=== PATIENT | male | born 1960 | race Caucasian/White ===

== ENCOUNTER 2020-05-10 21:54 | Inpatient (IN) | payer OTHER, SELFPAY ==
--- NOTE | 2020-05-10 22:10 | PC.NURSE ---
Went to [facility] pt for triage, admitting stated that he went to the bathroom.
--- NOTE | 2020-05-10 22:41 | ED.GIBLEED ---
HPI - GI Bleed General Stated complaint: blood in stool Time Seen by Provider: 05/10/20 21:59 Source: patient Mode of arrival: Ambulatory Limitations: no limitations History of Present Illness HPI Narrative: 59M non smoker with HTN, hyperlipidemia and history of a bowel resection presents with a chief complaint of multiple large bloody stools over the course of the day. He has become dizzy, weak, lightheaded and sweaty and had 4 of these bowel movements in the last hour. He does not take any blood thinners. He has some crampy lower abdominal pain that is worse with motion and improves with rest. He denies fever or chills. He has had no runny nose, sore throat or cough. In 2006 the patient had significant abdominal pain and during the evaluation they found he had a perforated diverticulum required bowel resection with primary anastomosis. Patient takes no blood thinners. He denies history of ulcers, alcohol use, or liver disease. He denies any vomiting. MD complaint: blood streaked stool and gross hematochezia Onset (ago): hour(s) Pain Consistency: constant Severity: moderate Relieving factors: rest Exacerbating factors: movement Related Data Home Medications Medication Instructions Recorded Confirmed aspirin 81 mg PO QDAY #0 11/26/16 05/11/20 cholecalciferol (vitamin D3) 2,000 iu PO QDAY #0 11/26/16 05/11/20 [Vitamin D3] hydrochlorothiazide 25 mg PO QDAY #0 11/26/16 05/11/20 lisinopril 20 mg PO QDAY #0 11/26/16 05/11/20 metformin [Glucophage] 500 mg PO BIDCC #0 11/26/16 05/11/20 omega 2-hwh-weo-fish oil [Fish Oil] 3,000 mg PO Q DAY #0 11/26/16 05/11/20 simvastatin 20 mg PO BEDTIME #0 11/26/16 05/11/20 potassium citrate PO BID 05/11/20 Allergies Allergy/AdvReac Type Severity Reaction Status Date / Time No Known Allergies Allergy Uncoded 01/04/18 12:42 Review of Systems Constitutional Constitutional: Denies chills, Reports fatigue, Denies fever(s), Denies frequent falls, Denies lethargy and Reports weakness Eyes Eyes: Denies change in vision, Denies eye discharge, Denies irritation and Denies loss of vision ENT Ears, Nose, Mouth, and Throat: Denies change in voice, Denies dizziness, Denies neck pain, Denies sore throat and Denies throat swelling Cardiovascular Cardiovascular: Denies chest pain, Denies irregular heart rhythm, Denies lightheadedness, Denies palpitations, Denies dyspnea, Denies dyspnea on exertion and Denies orthopnea Respiratory Respiratory: Denies cough, Denies dyspnea, Denies dyspnea on exertion and Denies wheezing Gastrointestinal Gastrointestinal: Denies abdominal pain, Reports hematochezia, Reports change in bowel habits, Reports change in stool character, Denies diarrhea, Reports nausea and Denies vomiting Musculoskeletal Musculoskeletal: Denies neck pain and Denies numbness Integumentary/Breasts Skin/Breast: Denies pruritus, Denies erythema, Denies rash and Denies wounds Neurologic Neurologic: Denies behavioral changes, Denies confusion, Denies dizziness, Denies frequent falls, Denies loss of vision, Denies numbness and Reports weakness Psychiatric Psychiatric: Denies anxiety, Denies behavioral changes, Denies confusion, Denies depression, Denies homicidal ideation and Denies suicidal ideation Endocrine Endocrine: Reports fatigue, Denies flushing and Denies palpitations Hematologic/Lymphatic Hematologic/Lymphatic: Denies easy bruising Allergic/Immunologic Allergic/Immunologic: Denies urticaria, Denies throat swelling and Denies wheezing Patient History Medical History Diverticulosis (Acute) History of diabetes mellitus, type II (Acute) Hyperlipidemia (Acute) Hypertension (Acute) Surgical History History of ankle surgery (Acute) History of detached retina repair (Acute) History of knee surgery (Acute) History of left cataract extraction (Acute) History of partial colectomy (Acute) Family History Father Mesothelioma Heart disease Mother Cancer Social History household members: spouse Smoking Status: Never smoker alcohol intake: current Exam Narrative Exam Narrative: GENERAL: [59] year old patient appears stated age. Well-nourished, well-developed patient, in obvious distress, pale, diaphoretic HEAD: Atraumatic. Normocephalic. EYES: Pupils equal round and reactive. Extraocular motions intact. No scleral icterus. No injection or drainage. ENT: Nose without bleeding, purulent drainage. Throat without erythema, tonsillar hypertrophy or exudate. Airway patent. NECK: Trachea midline. Non tender CARDIOVASCULAR: Tachycardic and regular rhythm without murmurs, gallops, or rubs. RESPIRATORY: Clear to auscultation. Breath sounds equal bilaterally. No wheezes, rales, or rhonchi. GASTROINTESTINAL: Abdomen soft, mild generalized tenderness bowel sounds in all 4 quadrants, nondistended. RECTAL: Deferred as the patient passed a large bloody stool in the department EXTREMITIES: No edema or joint tenderness. BACK: Nontender without deformity or crepitance. No flank tenderness. NEURO: AOx3. SKIN: No rash or erythema of visible areas Initial Vital Signs Initial Vital Signs: Vital Signs Temperature 98.5 F 05/10/20 22:43 Pulse Rate 101 H 05/10/20 22:43 Respiratory Rate 20 05/10/20 22:43 Blood Pressure 104/54 L 05/10/20 22:43 Pulse Oximetry 99 05/10/20 22:43 Course Orders Ordered: ED Orders 05/10/20 23:09 CT abdomen pelvis w con Stat 05/11/20 00:32 Consult to General Surgery Routine 05/11/20 00:33 Consult to Dietitian, Adult Routine 05/11/20 00:34 Magnesium Routine 05/11/20 00:37 Consult to Discharge Planning Routine 05/11/20 01:55 Hemoglobin and Hematocrit Urgent 05/11/20 05:40 Basic Metabolic Panel Urgent Complete Blood Count AUTO DIFF Urgent Dextrose (D50w) 25 gm IV PRN PRN; Protocol PRN Reason: Hypoglycemia Sodium Chloride (Normal Saline 0.9%) 1,000 mls @ 100 mls/hr IV CONT [facility] Last Admin: 05/11/20 03:10 Dose: 100 mls/hr Documented by: BUBBA Insulin Aspart (Novolog Flexpen) 0 unit SUBCUT ACHS [facility]; Protocol Morphine Sulfate (Morphine) 2 mg IV Q4HR PRN PRN Reason: Pain, Moderate (4-6) Naloxone HCl (Narcan) 0.2 mg IV Q2MIN PRN PRN Reason: Opiate Reversal Pantoprazole Sodium (Protonix) 40 mg IV BID [facility] Last Admin: 05/11/20 03:09 Dose: 40 mg Documented by: BUBBA Discontinued Medications Sodium Chloride (Normal Saline 0.9%) 1,000 mls @ 125 mls/hr IV CONT [facility] Last Admin: 05/10/20 22:45 Dose: 125 mls/hr Documented by: JAVIER Ciprofloxacin (Cipro) 400 mg in 200 mls @ 200 mls/hr IV Q12H NAKITA Ondansetron HCl (Zofran) 4 mg IV Q4HR PRN PRN Reason: Nausea And Vomiting Reevaluation(s) Reevaluation #1: Patient no longer dizzy, weak or lightheaded after initial evaluation and fluid bolus. Consultations Consultation #1: Discussion with on-call surgeon who is happy to scope when appropriate but asked patient to be admitted to medicine Consultation #2: Hospitalist happy to accept Vital Signs Vital signs: Vital Signs - 8 hr 05/11/20 00:12 Pulse Rate 91 H Respiratory Rate 20 Blood Pressure 105/61 Pulse Oximetry 99 MDM - GI Bleed Lab Data Result diagrams: 05/11/20 05:40 05/11/20 05:40 Labs: Lab Results 05/10/20 05/10/20 05/10/20 Range/Units 22:37 22:37 22:37 WBC 10.8 (4.5-11.0) X10^3/uL RBC 4.72 (4.5-5.9) X10^6/uL Hgb 15.0 (13.5-17.5) g/dL Hct 43.9 (41-53) % MCV 92.9 (80-100) fL MCH 31.8 (26-34) PG MCHC 34.2 (30-36) % RDW 13.2 (11.6-14.8) % Plt Count 305 (150-400) X10^3/uL Neut % (Auto) 53.1 (50-75) % Lymph % (Auto) 36.1 (25-40) % Storey % (Auto) 7.0 (3-14) % Eos % (Auto) 2.7 (2-4) % Baso % (Auto) 1.1 (0-2) % Neut # (Auto) 5700 (7907-0299) /uL Lymph # (Auto) 3900 (5623-7169) /uL Storey # (Auto) 800 (0-900) /uL Eos # (Auto) 300 (0-450) /uL Baso # (Auto) 100 (0-100) /uL PT 11.5 (10.1-12.7) SECONDS INR 1.0 (0.9-1.3) APTT 24 L (26.4-36.2) SECONDS Sodium 138 (137-145) mmol/L Potassium 3.7 (3.4-5.1) mmol/L Chloride 107 (98-107) mmol/L Carbon Dioxide 21 L (22-32) mmol/L BUN 33 H (9-20) mg/dL Creatinine 1.24 (0.66-1.25) mg/dL Estimated GFR 59.7 L (>60) mL/min BUN/Creatinine Ratio 26.6 H (6-22) Glucose 197 H (70-100) mg/dL Calcium 9.5 (8.4-10.2) mg/dL Magnesium (1.6-2.3) mg/dL Total Bilirubin 0.7 (0.2-1.3) mg/dL AST 24 (17-59) IU/L ALT 21 (<50) IU/L Alkaline Phosphatase 58 (38-126) U/L Total Protein 6.9 (6.3-8.2) g/dL Albumin 4.2 (3.5-5.0) g/dL Globulin 2.7 (1.7-4.1) g/dL Albumin/Globulin Ratio 1.6 (1.0-2.8) Procalcitonin (<0.5) ng/mL COVID-19 PCR (Negative) Blood Type Antibody Screen 05/10/20 05/10/20 05/10/20 Range/Units 22:37 22:37 22:37 WBC (4.5-11.0) X10^3/uL RBC (4.5-5.9) X10^6/uL Hgb (13.5-17.5) g/dL Hct (41-53) % MCV (80-100) fL MCH (26-34) PG MCHC (30-36) % RDW (11.6-14.8) % Plt Count (150-400) X10^3/uL Neut % (Auto) (50-75) % Lymph % (Auto) (25-40) % Storey % (Auto) (3-14) % Eos % (Auto) (2-4) % Baso % (Auto) (0-2) % Neut # (Auto) (8208-7296) /uL Lymph # (Auto) (3379-3735) /uL Storey # (Auto) (0-900) /uL Eos # (Auto) (0-450) /uL Baso # (Auto) (0-100) /uL PT (10.1-12.7) SECONDS INR (0.9-1.3) APTT (26.4-36.2) SECONDS Sodium (137-145) mmol/L Potassium (3.4-5.1) mmol/L Chloride (98-107) mmol/L Carbon Dioxide (22-32) mmol/L BUN (9-20) mg/dL Creatinine (0.66-1.25) mg/dL Estimated GFR (>60) mL/min BUN/Creatinine Ratio (6-22) Glucose (70-100) mg/dL Calcium (8.4-10.2) mg/dL Magnesium 1.9 (1.6-2.3) mg/dL Total Bilirubin (0.2-1.3) mg/dL AST (17-59) IU/L ALT (<50) IU/L Alkaline Phosphatase (38-126) U/L Total Protein (6.3-8.2) g/dL Albumin (3.5-5.0) g/dL Globulin (1.7-4.1) g/dL Albumin/Globulin Ratio (1.0-2.8) Procalcitonin < 0.05 (<0.5) ng/mL COVID-19 PCR (Negative) Blood Type O Positive Antibody Screen Negative 05/11/20 Range/Units 00:45 WBC (4.5-11.0) X10^3/uL RBC (4.5-5.9) X10^6/uL Hgb (13.5-17.5) g/dL Hct (41-53) % MCV (80-100) fL MCH (26-34) PG MCHC (30-36) % RDW (11.6-14.8) % Plt Count (150-400) X10^3/uL Neut % (Auto) (50-75) % Lymph % (Auto) (25-40) % Storey % (Auto) (3-14) % Eos % (Auto) (2-4) % Baso % (Auto) (0-2) % Neut # (Auto) (5799-1676) /uL Lymph # (Auto) (2070-3723) /uL Storey # (Auto) (0-900) /uL Eos # (Auto) (0-450) /uL Baso # (Auto) (0-100) /uL PT (10.1-12.7) SECONDS INR (0.9-1.3) APTT (26.4-36.2) SECONDS Sodium (137-145) mmol/L Potassium (3.4-5.1) mmol/L Chloride (98-107) mmol/L Carbon Dioxide (22-32) mmol/L BUN (9-20) mg/dL Creatinine (0.66-1.25) mg/dL Estimated GFR (>60) mL/min BUN/Creatinine Ratio (6-22) Glucose (70-100) mg/dL Calcium (8.4-10.2) mg/dL Magnesium (1.6-2.3) mg/dL Total Bilirubin (0.2-1.3) mg/dL AST (17-59) IU/L ALT (<50) IU/L Alkaline Phosphatase (38-126) U/L Total Protein (6.3-8.2) g/dL Albumin (3.5-5.0) g/dL Globulin (1.7-4.1) g/dL Albumin/Globulin Ratio (1.0-2.8) Procalcitonin (<0.5) ng/mL COVID-19 PCR Negative (Negative) Blood Type Antibody Screen Discharge Plan Departure Patient Disposition: Admitted as Observation Clinical Impression: Bright red rectal bleeding Discharge Date/Time: 05/11/20 01:30 Admit Date/Time: 05/11/20 00:58 Admit Provider: Bernardino Reyna
[2020-05-10 22:43] VITALS: BP 104/54; PULSE 101; RESP 20; TEMP 36.9; O2SAT 99
[2020-05-10] MEDS: SODIUM CHLORIDE 0.9% 1,000 ML 125 ML IV (22:45)
[2020-05-10 22:50] LABS: Add Manual Diff / Slide Review NO; Basophils Absolute Auto 100 /uL (0-100); Basophils Percent Auto 1.1 % (0-2); Eosinophils Absolute Auto 300 /uL (0-450); Eosinophils Percent Auto 2.7 % (2-4); Hematocrit 43.9 % (41-53); Lymphocytes Absolute Auto 3900 /uL (1100-4500); Lymphocytes Percent Auto 36.1 % (25-40); Mean Corpuscular HGB Conc 34.2 % (30-36); Mean Corpuscular Hemoglobin 31.8 PG (26-34); Mean Corpuscular Volume 92.9 fL (80-100); Monocytes Absolute Auto 800 /uL (0-900); Neutrophils Absolute Auto 5700 /uL (1500-7000); Neutrophils Percent Auto 53.1 % (50-75); Platelet Count 305 X10^3/uL (150-400); Red Blood Cell Count 4.72 X10^6/uL (4.5-5.9); Red Cell Distribution Width 13.2 % (11.6-14.8); White Blood Cell Count 10.8 X10^3/uL (4.5-11.0)
[2020-05-10 22:53] LABS: Prothrombin Time 11.5 SECONDS (10.1-12.7)
[2020-05-10 22:55] LABS: PTT Partial Thromboplastin Tim 24 SECONDS (26.4-36.2)
[2020-05-10 22:57] LABS: Alanine Aminotransferase 21 IU/L (<50); Albumin 4.2 g/dL (3.5-5.0); Albumin Globulin Ratio 1.6 (1.0-2.8); Alkaline Phosphatase 58 U/L (38-126); Aspartate Aminotransferase 24 IU/L (17-59); BUN Creatinine Ratio 26.6 (6-22); Bilirubin Total 0.7 mg/dL (0.2-1.3); Blood Urea Nitrogen 33 mg/dL (9-20); Calcium 9.5 mg/dL (8.4-10.2); Carbon Dioxide 21 mmol/L (22-32); Chloride 107 mmol/L (98-107); Estimated Glomerular Filt Rate 59.7 mL/min (>60); Globulin 2.7 g/dL (1.7-4.1); Glucose 197 mg/dL (70-100); HEMOLYSIS < 15 (0-50); Potassium 3.7 mmol/L (3.4-5.1); Sodium 138 mmol/L (137-145); Total Protein 6.9 g/dL (6.3-8.2)
--- NOTE | 2020-05-10 23:09 | DI.CT.S_ITS ---
PROCEDURE: CT ABDOMEN PELVIS W CON INDICATIONS: abdominal pain, significant rectal bleed TECHNIQUE: After the administration of intravenous contrast, 5 mm thick sections acquired from the diaphragm to the symphysis. 5 mm coronal and sagittal reformats were acquired. For radiation dose reduction, the following was used: automated exposure control, adjustment of mA and/or kV according to patient size. COMPARISON: None. FINDINGS: Image quality: Excellent. ABDOMEN: Lung bases: Lung bases are clear. Heart size is normal. Solid organs: Liver is normal in size and enhancement. Mild fatty liver infiltration is seen. Subcentimeter likely cysts can be seen within the liver. Gallbladder wall is not thickened. Biliary system is non dilated. Pancreas enhances normally. Spleen is normal in size and enhancement. At least 1 calcified granuloma is seen within the spleen. No adrenal nodules. The kidneys demonstrate normal size. Numerous nonobstructing kidney stones are seen. The largest on the right measures 1 cm. The largest on the left also measures 1 cm. No hydronephrosis is seen. Several water density cysts are seen. There is also a hyperdense focus along the focus along the lateral aspect of the right kidney that measures 4.5 cm and 42 Hounsfield units. At the inferior pole of the right kidney posteriorly, there is an additional hyperdense lesion that measures 29 Hounsfield units and 2.3 cm. Peritoneum and bowel: There is an anastomotic staple line seen involving rectum. No loren walker wall thickening can be seen. There is wall thickening seen involving4 the ascending colon. Diverticulosis is seen throughout. A normal appendix is incidentally noted. Nodes and vessels: No retroperitoneal or mesenteric adenopathy by size criteria. Aorta and inferior vena cava are normal in size. Miscellaneous: A mild periumbilical hernia is seen, containing fat. PELVIS: Genitourinary: Bladder wall thickness is normal. Miscellaneous: No inguinal adenopathy. Bilateral fat containing inguinal hernias are seen, right larger than left. Bones: No suspicious bony lesions. No vertebral body compression fractures. S-shaped scoliotic curvature is seen. There is moderate disc space narrowing seen at L4-5. Moderate to severe disc space narrowing is seen at L5-S1. Vacuum disc phenomenon is seen inferiorly, which is most prominent at L5-S1. IMPRESSION: Wall thickening is seen involving the ascending colon. No findings of perforation or abscess are seen. When clinically appropriate, please consider a dedicated colonoscopy for further evaluation. There is a rectal anastomotic staple line seen. No local abnormality is seen. Diverticula formation is seen throughout colon. Two exophytic lesions are seen associated with the right kidney that cannot be defined as simple cysts and most likely represent hyperdense/hemorrhagic cysts. A follow-up renal ultrasound is recommended for further evaluation, when clinically appropriate. Nonobstructing bilateral renal stones are seen, which measure up to 1 cm. No hydronephrosis. Incidental note is made of: Mild fatty liver infiltration Presumed subcentimeter renal cysts Small fat containing periumbilical hernia Fat containing bilateral inguinal hernias, right larger than left S-shaped scoliotic curvature Lower lumbar spine degenerative change Note: No significant discrepancy from the preliminary report. Dictated by: Senthil Knapp M.D. on 05/11/2020 at 8:51 Approved by: Senthil Knapp M.D. on 05/11/2020 at 9:01
[2020-05-11] VITALS (7 sets, daily range): BP systolic 100–129; BP diastolic 61–80; PULSE 63–102; RESP 18–20; TEMP 36.4–36.9; O2SAT 95–99; BMI 31.1
[2020-05-11 00:54] LABS: Magnesium 1.9 mg/dL (1.6-2.3)
--- NOTE | 2020-05-11 01:35 | PM.HP.1 ---
History of Present Illness History of Present Illness Date Patient Seen: 05/11/20 Time Patient Seen: 01:35 Chief complaint: blood in stool Narrative: Mr. Ermias Wells is a 59-year-old male with a past medical history significant for diverticulosis status post partial colectomy (2006), diabetes type 2 diet controlled, hypertension and hyperlipidemia who presents to the ER with bloody stools. The patient states that he was in his usual state health with no complaints of pain or problems until after dinner this evening he began having bloody stools. 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 Patient states he has 6 bloody stools on board ship and contact the captain and was transferred to the ER for further evaluation. While in the ER the patient had 5 more bloody stools described as large in volume maroon in color. Patient reports no prodrome symptoms but while in the ER experience an episode of diaphoresis and lightheadedness while passing of bloody stool. The patient has had no recent complaints of illness, fevers or chills and no known COVID-19 exposures. He denies complaints of chest pain or palpitations and has had no shortness of breath cough or wheezing. He denies epigastric pain or abdominal cramping. He has had no changes in bowel movements until this evening and has a remote history of a partial colectomy in 2006 for diverticulitis. He describes no difficulty urinating and no urinary symptoms. He reports no neck back or joint problems and is independent in all ADLs. Upon arrival to the ER the patient has temperature of 98.5?, heart rate 101, blood pressure 104/54, respiratory rate of 20 and oxygen saturation of 99% on room air. Abdominal CT is obtained which finds circumferential wall thickening involving a portion of the ascending colon suggestive of colitis, no abscess or free air. Notation made of postsurgical changes in the distal colon and colonic diverticula without evidence of acute diverticulitis, no acute appendicitis. On laboratory analysis patient will count to 10.8 with elevated neutrophil count at 87.9%. His hemoglobin is 15.0 and hematocrit is 43.9 with platelets of 305. He has a PT of 11.5, INR 1.0 and a PTT of 24. His electrolytes are within normal limits and has a BUN of 33 and INR of 1.24. His nonfasting glucose is 197. His liver functions are all within normal limits. In the ER the patient was typed and crossed and received 500 cc bolus, normal saline at 125 cc/hour. Dr. Cruz general surgery was contacted through the ER and agrees to consult. The patient is admitted to the medicine service for lower GI bleed. Patient History Medical History (Updated 05/11/20 @ 03:04 by TRISTIN Phillips) Diverticulosis (Acute) History of diabetes mellitus, type II (Acute) Hyperlipidemia (Acute) Hypertension (Acute) Surgical History (Updated 05/11/20 @ 03:04 by TRISTIN Phillips) History of ankle surgery (Acute) History of detached retina repair (Acute) History of knee surgery (Acute) History of left cataract extraction (Acute) History of partial colectomy (Acute) Family & Social History Family History (Updated 05/11/20 @ 03:05 by TRISTIN Phillips) Father Mesothelioma Heart disease Mother Cancer Safety & Behavioral: Feels Safe in Current Yes Environment Been Physically Hurt or No Threatened By a Person Tobacco & Substance use: Smoking Status Never smoker Substance Use Type does not use Meds Home Medications and Allergies Home Medications Medication Instructions Recorded Confirmed Type aspirin 81 mg PO QDAY #0 11/26/16 05/11/20 History cholecalciferol (vitamin D3) 2,000 iu PO QDAY #0 11/26/16 05/11/20 History [Vitamin D3] hydrochlorothiazide 25 mg PO QDAY #0 11/26/16 05/11/20 History lisinopril 20 mg PO QDAY #0 11/26/16 05/11/20 History metformin [Glucophage] 500 mg PO BIDCC #0 11/26/16 05/11/20 History omega 0-mxn-dtu-fish oil [Fish Oil] 3,000 mg PO Q DAY #0 11/26/16 05/11/20 History simvastatin 20 mg PO BEDTIME #0 11/26/16 05/11/20 History potassium citrate PO BID 05/11/20 History Allergies Allergy/AdvReac Type Severity Reaction Status Date / Time No Known Allergies Allergy Uncoded 01/04/18 12:42 Review of Systems Review of Systems ROS: Yes All systems reviewed with the patient and are negative except as otherwise documented Exam Vital Signs (past 8 hours): - 05/10/20 22:43 05/11/20 00:12 Temperature 98.5 F Pulse Rate 101 H 91 H Respiratory Rate 20 20 Blood Pressure 104/54 L 105/61 Pulse Oximetry 99 99 Oxygen Delivery Method Room Air Narrative Exam Narrative: GENERAL APPEARANCE: well developed, obese male, sitting on the side of bed in no acute distress. HEENT: Normocephalic, PERRLA, conjunctiva clear, EOMs intact without nystagmus, no sinus tenderness to percussion, no rhinorrhea, mucous membranes are moist and pink without lesions or exudate. NECK/THYROID: neck supple, no JVD, no carotid bruit, no thyromegaly, trachea midline. LYMPH NODES: no cervical or supraclavicular lymphadenopathy. SKIN: [place], warm and dry, no visible lesions, rashes, ulcerations or petechiae. HEART: regular rate and rhythm, S1-S2, no murmur, no rubs or gallops, brisk capillary refill, no edema LUNGS: clear to auscultation bilaterally, no coarseness crackles or wheezing, no cough present CHEST: Symmetrical movement, no accessory muscle use, good tidal volume. ABDOMEN: Soft, no distention, no abdominal tenderness, no guarding or peritoneal signs, no organomegaly, no flank or suprapubic tenderness, hyperactive bowel tones. BACK: Normal curvature, nontender to palpation, no CVA tenderness on percussion EXTREMITIES: moves all extremities, strength is 5/5 and symmetrical, no deformities or joint effusions. NEUROLOGIC: AAO x4, no focal neurologic deficits, cranial nerves II-XII grossly intact, sensation intact to light touch, hearing grossly normal to speech. PSYCH: Good judgment, good insight, linear thought process, cooperative, appropriate with stable behavior Objective Labs Result Diagrams: 05/11/20 01:55 05/10/20 22:37 Labs: Laboratory Results - last 24 hr 05/10/20 05/10/20 05/10/20 22:37 22:37 22:37 WBC 10.8 RBC 4.72 Hgb 15.0 Hct 43.9 MCV 92.9 MCH 31.8 MCHC 34.2 RDW 13.2 Plt Count 305 Neut % (Auto) 53.1 Lymph % (Auto) 36.1 [place] % (Auto) 7.0 Eos % (Auto) 2.7 Baso % (Auto) 1.1 Neut # (Auto) 5700 Lymph # (Auto) 3900 [place] # (Auto) 800 Eos # (Auto) 300 Baso # (Auto) 100 PT 11.5 INR 1.0 APTT 24 L Sodium 138 Potassium 3.7 Chloride 107 Carbon Dioxide 21 L BUN 33 H Creatinine 1.24 Estimated GFR 59.7 L BUN/Creatinine Ratio 26.6 H Glucose 197 H Calcium 9.5 Magnesium Total Bilirubin 0.7 AST 24 ALT 21 Alkaline Phosphatase 58 Total Protein 6.9 Albumin 4.2 Globulin 2.7 Albumin/Globulin Ratio 1.6 Blood Type Antibody Screen 05/10/20 05/10/20 22:37 22:37 WBC RBC Hgb Hct MCV MCH MCHC RDW Plt Count Neut % (Auto) Lymph % (Auto) [place] % (Auto) Eos % (Auto) Baso % (Auto) Neut # (Auto) Lymph # (Auto) [place] # (Auto) Eos # (Auto) Baso # (Auto) PT INR APTT Sodium Potassium Chloride Carbon Dioxide BUN Creatinine Estimated GFR BUN/Creatinine Ratio Glucose Calcium Magnesium 1.9 Total Bilirubin AST ALT Alkaline Phosphatase Total Protein Albumin Globulin Albumin/Globulin Ratio Blood Type O Positive Antibody Screen Negative Assessment & Plan Assessment & Plan narrative: This is a 50-year-old male patient who presents with an acute onset of bloody diarrhea, 6 episodes prior to arrival and a 5 while in the ER described as large and maroon in color. The patient has a history of prior diverticulitis and reports a ?polyp that ruptured? to resulting in a partial colectomy in 2006. The patient denies other associated symptoms. 1. Acute lower GI bleed, present on admission, active -patient with 11 bloody stools maroon in color, denies abdominal cramping or nausea. Patient month 1 episode of transient lightheadedness and diaphoresis while passing large bloody stool, he has been afebrile with no prodromal or associated symptoms. -CT abdomen finds apparent circumferential wall thickening involving a portion of the ascending colon suggestive of colitis with no abscess or free air. Notation is also made of postsurgical changes involving the distal colon with colonic diverticula without evidence of diverticulitis and normal appendix. -initial hemoglobin on admission is 15.0. Will recheck hemoglobin in 4 hours and with morning labs. White blood cell count is 10.8 with increased neutrophils at 87.9. Will obtain a procalcitonin. -Dr. Puentes has been consulted through the emergency department and agrees to consult, we appreciate your evaluation and recommendations. -patient is NPO, ordered normal saline at 100 cc/hour. -patient takes aspirin 81 mg daily which is held as well as omega-3 fish oil and vitamin D3. 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 Quit his name is Harpal Christina, [phone]. 2. Diabetes type 2, diet control, with hyperglycemia, present on admission, active. -patient previously was on metformin 500 mg twice daily was told the medication could be discontinued following significant weight loss. -blood sugar on admission is 197 and may be related to stress response. -will check blood sugar every 6 hours while NPO and cover with low scale correctional insulin. -will obtain hemoglobin A1c. 3. Hypertension, chronic, stable -blood pressure on admission is 104/54. -will resume lisinopril 20 mg daily when taking orals. -patient routinely takes hydrochlorothiazide 25 mg daily which will be held. 4. Hyperlipidemia, chronic, stable -continue home regimen of simvastatin 20 mg daily VTE prophylaxis: Bilateral SCDs, chemical prophylaxis contraindicated IV fluid: Normal saline 100 cc/hour Diet: NPO pending surgical evaluation. Code status: Full code, patient designates his very to be his POA and surrogate decision maker. The patient is admitted to the hospital due to the severity of his symptoms and risk for complications and adverse events. The patient is admitted as observation with expected length of stay to be less than 2 midnights. COVID-19 COVID-19 status: Negative Result date/Date tested (Pos, Neg/Pending): 05/11/20 Scores GCS [place] coma scale eye opening: Spontaneous [place] coma scale verbal response: Orientated Eran coma scale motor response: Obey commands Eran coma scale total score: 15
[2020-05-11 02:04] LABS: Hematocrit 39.9 % (41-53); Hemoglobin 13.5 g/dL (13.5-17.5)
[2020-05-11] MEDS: PANTOPRAZOLE 40 MG VIAL IV (03:09)
[2020-05-11 03:10] LABS: COVID19 -Nasal RAPID Negative (Negative)
[2020-05-11] MEDS: SODIUM CHLORIDE 0.9% 1,000 ML 100 ML IV (03:10)
[2020-05-11 03:26] LABS: Hemoglobin A1C% w Est Avg Glu 5.9 % (4.0-6.0)
[2020-05-11 03:39] LABS: Procalcitonin < 0.05 ng/mL (<0.5)
--- NOTE | 2020-05-11 04:58 | PC.NURSE ---
IVF started after patient had shower. Will be NS at 100 with a labelled line.
[2020-05-11 06:30] LABS: Add Manual Diff / Slide Review NO; Basophils Absolute Auto 100 /uL (0-100); Basophils Percent Auto 0.7 % (0-2); Eosinophils Absolute Auto 200 /uL (0-450); Eosinophils Percent Auto 2.3 % (2-4); Hematocrit 38.3 % (41-53); Hemoglobin 13.1 g/dL (13.5-17.5); Lymphocytes Absolute Auto 2100 /uL (1100-4500); Lymphocytes Percent Auto 26.3 % (25-40); Mean Corpuscular HGB Conc 34.3 % (30-36); Mean Corpuscular Hemoglobin 31.9 PG (26-34); Mean Corpuscular Volume 92.9 fL (80-100); Monocytes Absolute Auto 800 /uL (0-900); Monocytes Percent Auto 9.8 % (3-14); Neutrophils Absolute Auto 4900 /uL (1500-7000); Neutrophils Percent Auto 60.9 % (50-75); Platelet Count 251 X10^3/uL (150-400); Red Blood Cell Count 4.13 X10^6/uL (4.5-5.9); Red Cell Distribution Width 13.4 % (11.6-14.8)
[2020-05-11 06:36] LABS: BUN Creatinine Ratio 33.3 (6-22); Blood Urea Nitrogen 31 mg/dL (9-20); Calcium 8.9 mg/dL (8.4-10.2); Carbon Dioxide 27 mmol/L (22-32); Chloride 107 mmol/L (98-107); Estimated Glomerular Filt Rate > 60.0 mL/min (>60); Glucose 103 mg/dL (70-100); HEMOLYSIS < 15 (0-50); Sodium 138 mmol/L (137-145)
--- NOTE | 2020-05-11 10:16 | PM.CN ---
History of Present Illness Consult details Date Patient Seen: 05/11/20 Time Patient Seen: 13:28 Chief complaint: blood in stool Reason for consult: Rectal bleeding Requesting provider: Bernardino Reyna Narrative: This is a 59-year-old male with a h/o diverticulosis status post sigmoid colectomy (2006), DM2, HTN, and HLD. He came into the ER with bloody stools after sudden onset of rectal bleeding last night. 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 While in the ER he had 5 more bloody stools described as large in volume maroon in color. He denies any abdominal pain, nausea, or other associated symptoms. In the ER CT abdomen showed circumferential wall thickening involving a portion of the ascending colon suggestive of colitis, no abscess or free air. He says he had a colonoscopy within the past year, back home in [place], [place]. WBC was 10.8, and Hgb was 15. He was admitted to the medicine service over night for lower GI bleed. He denies any further blood per rectum since being in the ER. He denies any abdominal pain. He says he feels normal. ROS: Denies recent complaints of illness, fevers or chills and no known COVID-19 exposures. He denies complaints of chest pain or palpitations and has had no shortness of breath cough or wheezing. He denies epigastric pain or abdominal cramping. He has had no changes in bowel movements until this evening and has a remote history of a partial colectomy in 2006 for diverticulitis. He describes no difficulty urinating and no urinary symptoms. He reports no neck back or joint problems and is independent in all ADLs. Thirteen system review is otherwise negative other than as mentioned below and in HPI. PE: GENERAL: Alert, comfortable, obese. Appears stated age. Answers questions promptly and appropriately. Vital signs noted. HENT: Normocephalic, atraumatic. Hearing intact. EYES: Conjunctiva pink, sclera white, no periorbital swelling. CARDIOVASCULAR: Regular rate. No pedal edema. RESPIRATORY: Non-tachypneic, breathing comfortably on room air. GASTROINTESTINAL: Abdomen soft and non-distended; nontender, rounded, well-healed midline incisional scar with small non reducible midline hernia just superior to the umbilicus GENITALURINARY: No flank tenderness. MUSCULOSKELETAL: Equal tone and mass bilaterally. SKIN: Warm, dry, soft, appropriate color for ethnicity. No other lesions, rashes, or wounds. NEURO: Alert and Oriented X 3. No gross sensory deficits, or cognitive issues. PSYCH: Appropriate affect and mood. Meds Home Medications and Allergies Home Medications Medication Instructions Recorded Confirmed Type aspirin 81 mg PO QDAY #0 11/26/16 05/11/20 History cholecalciferol (vitamin D3) 2,000 iu PO QDAY #0 11/26/16 05/11/20 History [Vitamin D3] hydrochlorothiazide 25 mg PO QDAY #0 11/26/16 05/11/20 History lisinopril 20 mg PO QDAY #0 11/26/16 05/11/20 History metformin [Glucophage] 500 mg PO BIDCC #0 11/26/16 05/11/20 History omega 9-xdp-wsq-fish oil [Fish Oil] 3,000 mg PO Q DAY #0 11/26/16 05/11/20 History simvastatin 20 mg PO BEDTIME #0 11/26/16 05/11/20 History potassium citrate PO BID 05/11/20 History Allergies Allergy/AdvReac Type Severity Reaction Status Date / Time No Known Allergies Allergy Uncoded 01/04/18 12:42 Exam Vital Signs (past 8 hours): - 05/11/20 06:00 05/11/20 08:20 Temperature 97.8 F 97.6 F Pulse Rate 73 63 Respiratory Rate 18 18 Blood Pressure 116/73 116/80 Pulse Oximetry 97 96 Oxygen Delivery Method Room Air Oxygen Flow Rate [address] scan - abdomen: Radiologist's impression: [place] [address] CT Scan Report Signed Patient: Ermias Wells#: [id number] : 1960Acct:[id number] Age/Sex: 59 / MDate of Service: 05/10/20 Loc: IS853-5 Accession Number: [id number] Procedure: CT abdomen pelvis w con Ordering Provider: Mauricio Santiago D.O. PROCEDURE: CT ABDOMEN PELVIS W CON INDICATIONS: abdominal pain, significant rectal bleed TECHNIQUE: After the administration of intravenous contrast, 5 mm thick sections acquired from the diaphragm to the symphysis. 5 mm coronal and sagittal reformats were acquired. For radiation dose reduction, the following was used: automated exposure control, adjustment of mA and/or kV according to patient size. COMPARISON: None. FINDINGS: Image quality: Excellent. ABDOMEN: Lung bases: Lung bases are clear. Heart size is normal. Solid organs: Liver is normal in size and enhancement. Mild fatty liver infiltration is seen. Subcentimeter likely cysts can be seen within the liver. Gallbladder wall is not thickened. Biliary system is non dilated. Pancreas enhances normally. Spleen is normal in size and enhancement. At least 1 calcified granuloma is seen within the spleen. No adrenal nodules. The kidneys demonstrate normal size. Numerous nonobstructing kidney stones are seen. The largest on the right measures 1 cm. The largest on the left also measures 1 cm. No hydronephrosis is seen. Several water density cysts are seen. There is also a hyperdense focus along the focus along the lateral aspect of the right kidney that measures 4.5 cm and 42 Hounsfield units. At the inferior pole of the right kidney posteriorly, there is an additional hyperdense lesion that measures 29 Hounsfield units and 2.3 cm. Peritoneum and bowel: There is an anastomotic staple line seen involving rectum. No loren walker wall thickening can be seen. There is wall thickening seen involving4 the ascending colon. Diverticulosis is seen throughout. A normal appendix is incidentally noted. Nodes and vessels: No retroperitoneal or mesenteric adenopathy by size criteria. Aorta and inferior vena cava are normal in size. Miscellaneous: A mild periumbilical hernia is seen, containing fat. PELVIS: Genitourinary: Bladder wall thickness is normal. Miscellaneous: No inguinal adenopathy. Bilateral fat containing inguinal hernias are seen, right larger than left. Bones: No suspicious bony lesions. No vertebral body compression fractures. S-shaped scoliotic curvature is seen. There is moderate disc space narrowing seen at L4-5. Moderate to severe disc space narrowing is seen at L5-S1. Vacuum disc phenomenon is seen inferiorly, which is most prominent at L5-S1. IMPRESSION: Wall thickening is seen involving the ascending colon. No findings of perforation or abscess are seen. When clinically appropriate, please consider a dedicated colonoscopy for further evaluation. There is a rectal anastomotic staple line seen. No local abnormality is seen. Diverticula formation is seen throughout colon. Two exophytic lesions are seen associated with the right kidney that cannot be defined as simple cysts and most likely represent hyperdense/hemorrhagic cysts. A follow-up renal ultrasound is recommended for further evaluation, when clinically appropriate. Nonobstructing bilateral renal stones are seen, which measure up to 1 cm. No hydronephrosis. Incidental note is made of: Mild fatty liver infiltration Presumed subcentimeter renal cysts Small fat containing periumbilical hernia Fat containing bilateral inguinal hernias, right larger than left S-shaped scoliotic curvature Lower lumbar spine degenerative change Note: No significant discrepancy from the preliminary report. Dictated by: Senthil Knapp M.D. on 05/11/2020 at 8:51 Approved by: Senthil Knapp M.D. on 05/11/2020 at 9:01 Labs Result Diagrams: 05/11/20 05:40 05/11/20 05:40 Labs: Laboratory Results - last 24 hr 05/10/20 05/10/20 05/10/20 22:37 22:37 22:37 WBC 10.8 RBC 4.72 Hgb 15.0 Hct 43.9 MCV 92.9 MCH 31.8 MCHC 34.2 RDW 13.2 Plt Count 305 Neut % (Auto) 53.1 Lymph % (Auto) 36.1 [place] % (Auto) 7.0 Eos % (Auto) 2.7 Baso % (Auto) 1.1 Neut # (Auto) 5700 Lymph # (Auto) 3900 [place] # (Auto) 800 Eos # (Auto) 300 Baso # (Auto) 100 PT 11.5 INR 1.0 APTT 24 L Sodium 138 Potassium 3.7 Chloride 107 Carbon Dioxide 21 L BUN 33 H Creatinine 1.24 Estimated GFR 59.7 L BUN/Creatinine Ratio 26.6 H Glucose 197 H Hemoglobin A1c Calcium 9.5 Magnesium Total Bilirubin 0.7 AST 24 ALT 21 Alkaline Phosphatase 58 Total Protein 6.9 Albumin 4.2 Globulin 2.7 Albumin/Globulin Ratio 1.6 Procalcitonin COVID-19 PCR Blood Type Antibody Screen 05/10/20 05/10/20 05/10/20 22:37 22:37 22:37 WBC RBC Hgb Hct MCV MCH MCHC RDW Plt Count Neut % (Auto) Lymph % (Auto) [place] % (Auto) Eos % (Auto) Baso % (Auto) Neut # (Auto) Lymph # (Auto) [place] # (Auto) Eos # (Auto) Baso # (Auto) PT INR APTT Sodium Potassium Chloride Carbon Dioxide BUN Creatinine Estimated GFR BUN/Creatinine Ratio Glucose Hemoglobin A1c Calcium Magnesium 1.9 Total Bilirubin AST ALT Alkaline Phosphatase Total Protein Albumin Globulin Albumin/Globulin Ratio Procalcitonin < 0.05 COVID-19 PCR Blood Type O Positive Antibody Screen Negative 05/11/20 05/11/20 05/11/20 00:45 01:55 01:55 WBC RBC Hgb 13.5 Hct 39.9 L MCV MCH MCHC RDW Plt Count Neut % (Auto) Lymph % (Auto) [place] % (Auto) Eos % (Auto) Baso % (Auto) Neut # (Auto) Lymph # (Auto) [place] # (Auto) Eos # (Auto) Baso # (Auto) PT INR APTT Sodium Potassium Chloride Carbon Dioxide BUN Creatinine Estimated GFR BUN/Creatinine Ratio Glucose Hemoglobin A1c 5.9 Calcium Magnesium Total Bilirubin AST ALT Alkaline Phosphatase Total Protein Albumin Globulin Albumin/Globulin Ratio Procalcitonin COVID-19 PCR Negative Blood Type Antibody Screen 05/11/20 05/11/20 05:40 05:40 WBC 8.0 RBC 4.13 L Hgb 13.1 L Hct 38.3 L MCV 92.9 MCH 31.9 MCHC 34.3 RDW 13.4 Plt Count 251 Neut % (Auto) 60.9 Lymph % (Auto) 26.3 [place] % (Auto) 9.8 Eos % (Auto) 2.3 Baso % (Auto) 0.7 Neut # (Auto) 4900 Lymph # (Auto) 2100 [place] # (Auto) 800 Eos # (Auto) 200 Baso # (Auto) 100 PT INR APTT Sodium 138 Potassium 4.0 Chloride 107 Carbon Dioxide 27 BUN 31 H Creatinine 0.93 Estimated GFR > 60.0 BUN/Creatinine Ratio 33.3 H Glucose 103 H Hemoglobin A1c Calcium 8.9 Magnesium Total Bilirubin AST ALT Alkaline Phosphatase Total Protein Albumin Globulin Albumin/Globulin Ratio Procalcitonin COVID-19 PCR Blood Type Antibody Screen Assessment & Plan Assessment and plan (1) Bright red rectal bleeding: Status: Acute (2) Colitis: Status: Acute (3) Diverticulosis: Status: Acute (4) History of diabetes mellitus, type II: Status: Acute (5) Hypertension: Status: Acute Assessment & Plan narrative: This is a 59-year-old man who had it appears to be an episode of self-limited bright bleeding per rectum, which is likely secondary to some segmental colitis which was seen on his CT scan. Given that he has had a colonoscopy, per the patient's report, within the past year, which was essentially normal per him, and the CT scan shows segmental colitis, from which the patient does not appear to be significantly symptomatic or septic, I would recommend empiric treatment for his colitis, and colonoscopy only if bleeding starts again in will not stop, or he has worsening clinically. Plan: Clear liquid diet IV antibiotics Daily labs Dispo pending no further bright red blood per rectum, tolerance of diet, and labs are normal COVID-19 COVID-19 status: Negative Result date/Date tested (Pos, Neg/Pending): 05/11/20 Time Spent With Patient Time with patient: 15-24 minutes
[2020-05-11] MEDS: levoFLOXacin 500 MG/100 ML PIGGYBACK 100 MG IV (10:18)
[2020-05-11] MEDS: metroNIDAZOLE 500 MG/100 ML PIGGYBACK 100 MG IV ×2 (11:55→19:06)
--- NOTE | 2020-05-11 12:40 | CM.DANOTE ---
DCP Assessment: EMR reviewed: Patient is a 59 yr old male who was admitted for Lower GI Bleed. CM/RN met with patient in his room, Patient was up brushing his teeth then looking out the window when CM/Rn came to visit. CM/RN explained role. Patient was alert and oriented x3 during CM visit. 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 Patient was brought into the ED here for an evaluation per patients employers request. During AM Rounds Dr. Martinez has stated that Dr. Cruz did consult on patient and stated that she didn't think he needed a colonoscopy at this time since the patient just had one last year. Patient stated he is no longer having the urge to go to the bathroom and has not had a BM this morning. Patient is very independent with all ADL's and drives at baseline. patient does not use DME at home or on a regular basis. I: L&I and [place] Plan: D/C when medically stable back to his work Ship. No D/C need identified at this time. CM department will follow to help assist with any needs that may arise. Nicol Chery RN. Discharge Planning/Care Management Advanced directive, confirm from FAMILY Start: 05/11/20 02:02 Freq: Q24H Status: Active Protocol: Document 05/11/20 02:02 DL (Rec: 05/11/20 02:13 DL [id number]) Advance Directive, confirm on record Time 02:12 Person contacted patient Copy received No CM Discharge Assessment Start: 05/11/20 12:37 Freq: Status: Active Protocol: Document 05/11/20 12:37 HS (Rec: 05/11/20 12:40 HS [id number]) Discharge Planning Assessment Assigned Site Surveyor Nicol Chery RN DPOA/Assigned Designee Name Vianney Wells () Contact Information [phone] Advance Directives? No Advance Directives on File No History Provided By Patient Has Patient been admitted in last 30 No days? Prior Living Arrangements House Household Members spouse Type of transporation used prior to Drives own vehicle admit Willing to Return to Facility? Yes Independent with ADL's Yes Is patient alert and oriented? Yes Caregiver for Another No Barriers to Discharge No Discharge Plan Home Referrals Initiated None needed Whiteboard Updated in Patient Room with Yes name and ext. # of Site Surveyor Review Status In Process Next Review Type Continued Stay Review
--- NOTE | 2020-05-11 18:16 | PC.NURSE ---
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 When I brought him his meal, he called me his leland and said you do love me and I've been waiting for you my whole life. I told him I was just doing my job. Later, when I went in to take off his tele monitor, I warned him that it might be painful because of his chest hair. I pulled off the first sticker and he cried out in pain and said to me you're going to have to talk dirty to me implying that would get him through this pain. I told him to keep it PG, sir and pulled off the next sticker. He pulled his gown down, exposing most of his groin, and said you know, if I was into this, it'd be different. I told him I'm just doing my job sir, let's be professional. He chuckled, but made no response in acknowledgement. I notified Emiliana RN and Arpita, coordinator. I will continue to provide care to the patient and will address any further improprieties if they arise.
[2020-05-12] VITALS (19 sets, daily range): BP systolic 92–128; BP diastolic 50–85; PULSE 75–126; RESP 16–27; TEMP 36.3–37.1; O2SAT 96–100
[2020-05-12 00:01] LABS: Hematocrit 34.6 % (41-53); Hemoglobin 11.9 g/dL (13.5-17.5)
[2020-05-12] MEDS: SODIUM CHLORIDE 0.9% 500 ML 1000 ML IV (00:04)
--- NOTE | 2020-05-12 00:26 | PC.NURSE ---
Addendum entered by Sasha Martinez R.N. 05/12/20 06:07: Did have 100cc pudding consistency dark red stool this morning. Denies any cramping, pain or discomfort. Addendum entered by Sasha Martinez R.N. 05/12/20 05:56: Slept most of shift. No further stools this shift. Does complain of 5/10 headache this morning so informed TRISTIN Reyna, and Tylenol ordered and given. Assisted to bathroom and denies dizziness or lightheadedness. 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 Became diaphoretic, pale and dizzy while up and BP dropped to 96/52 with HR of 126 when standing. Axel CROW, informed and was in to see patient and orders received for stat h&h, IVF to restart and fluid bolus. Patient assessed and is alert and oriented. Breath sounds CTA with RA sat of 98%; denies SOB. HRR and no longer tachycardic now that he is back in bed and denies feeling dizzy except when taking deep breaths. BT hypoactive. Denies dysuria, frequency or urgency with urination. Is able to turn himself in bed. Due to VS and dizziness discussed need to use BSC during this shift and to call staff for assistance; bed alarm is activated and patient agreeable. Denies pain. Fall risk score is moderate.
[2020-05-12] MEDS: metroNIDAZOLE 500 MG/100 ML PIGGYBACK 100 MG IV ×3 (02:36→18:34)
[2020-05-12] MEDS: SODIUM CHLORIDE 0.9% 1,000 ML 100 ML IV ×2 (05:37→08:34)
[2020-05-12] MEDS: ACETAMINOPHEN 325 MG TABLET 650 MG PO (05:54)
[2020-05-12 06:00] LABS: Add Manual Diff / Slide Review NO; Basophils Absolute Auto 0 /uL (0-100); Basophils Percent Auto 0.6 % (0-2); Eosinophils Absolute Auto 100 /uL (0-450); Hematocrit 26.9 % (41-53); Hemoglobin 9.3 g/dL (13.5-17.5); Lymphocytes Absolute Auto 2000 /uL (1100-4500); Mean Corpuscular HGB Conc 34.6 % (30-36); Mean Corpuscular Hemoglobin 32.3 PG (26-34); Mean Corpuscular Volume 93.2 fL (80-100); Monocytes Absolute Auto 600 /uL (0-900); Monocytes Percent Auto 7.6 % (3-14); Neutrophils Absolute Auto 5000 /uL (1500-7000); Neutrophils Percent Auto 64.8 % (50-75); Platelet Count 225 X10^3/uL (150-400); Red Blood Cell Count 2.89 X10^6/uL (4.5-5.9); Red Cell Distribution Width 13.3 % (11.6-14.8); White Blood Cell Count 7.7 X10^3/uL (4.5-11.0)
[2020-05-12 06:14] LABS: BUN Creatinine Ratio 23.4 (6-22); Blood Urea Nitrogen 18 mg/dL (9-20); Calcium 7.9 mg/dL (8.4-10.2); Carbon Dioxide 25 mmol/L (22-32); Chloride 109 mmol/L (98-107); Estimated Glomerular Filt Rate > 60.0 mL/min (>60); Glucose 106 mg/dL (70-100); HEMOLYSIS < 15 (0-50); Sodium 135 mmol/L (137-145)
[2020-05-12 06:15] LABS: Magnesium 1.8 mg/dL (1.6-2.3)
[2020-05-12 06:27] LABS: Procalcitonin < 0.05 ng/mL (<0.5)
[2020-05-12] MEDS: levoFLOXacin 500 MG/100 ML PIGGYBACK 100 MG IV (08:38)
[2020-05-12] MEDS: SODIUM CHLORIDE 0.9% FLUSH 10 ML IV ×3 (08:38→18:34)
[2020-05-12 12:25] LABS: Hematocrit 25.9 % (41-53); Hemoglobin 9.1 g/dL (13.5-17.5)
--- NOTE | 2020-05-12 12:41 | PM.PN.1 ---
Subjective Subjective Date Patient Seen: 05/12/20 Time Patient Seen: 12:41 Interval history: Several bloody bowel movements overnight. Hemoglobin 9 from 15 on admission, hemodynamically stable. No nausea vomiting. Exam Vital Signs (past 8 hours): - 05/12/20 05:27 05/12/20 08:00 05/12/20 08:24 Temperature 97.9 F 97.4 F L Pulse Rate 93 H 84 Pulse Rate [Orthostatic Lying] 106 H Pulse Rate [Orthostatic Sitting] 106 H Pulse Rate [Orthostatic Standing] 111 H Respiratory Rate 20 18 Blood Pressure 102/68 92/55 L Blood Pressure [Orthostatic Lying] 92/55 L Blood Pressure [Orthostatic Sitting] 123/64 Blood Pressure [Orthostatic Standing] 93/50 L Pulse Oximetry 96 97 05/12/20 12:38 Temperature 97.9 F Pulse Rate 80 Pulse Rate [Orthostatic Lying] Pulse Rate [Orthostatic Sitting] Pulse Rate [Orthostatic Standing] Respiratory Rate 16 Blood Pressure 105/68 Blood Pressure [Orthostatic Lying] Blood Pressure [Orthostatic Sitting] Blood Pressure [Orthostatic Standing] Pulse Oximetry 96 Oxygen Delivery Method Room Air Oxygen Flow Rate 0 Narrative Exam Narrative: General adult male alert oriented no acute distress Abdomen soft non distended. Objective Labs Result Diagrams: 05/12/20 12:08 05/12/20 05:45 Labs: Laboratory Results - last 24 hr 05/11/20 05/12/20 05/12/20 23:53 05:45 05:45 WBC RBC Hgb 11.9 L Hct 34.6 L MCV MCH MCHC RDW Plt Count Neut % (Auto) Lymph % (Auto) [place] % (Auto) Eos % (Auto) Baso % (Auto) Neut # (Auto) Lymph # (Auto) [place] # (Auto) Eos # (Auto) Baso # (Auto) Sodium Potassium Chloride Carbon Dioxide BUN Creatinine Estimated GFR BUN/Creatinine Ratio Glucose Calcium Magnesium 1.8 Procalcitonin < 0.05 05/12/20 05/12/20 05/12/20 05:45 05:45 12:08 WBC 7.7 RBC 2.89 L Hgb 9.3 L 9.1 L Hct 26.9 L 25.9 L MCV 93.2 MCH 32.3 MCHC 34.6 RDW 13.3 Plt Count 225 Neut % (Auto) 64.8 Lymph % (Auto) 26.0 [place] % (Auto) 7.6 Eos % (Auto) 1.0 L Baso % (Auto) 0.6 Neut # (Auto) 5000 Lymph # (Auto) 2000 [place] # (Auto) 600 Eos # (Auto) 100 Baso # (Auto) 0 Sodium 135 L Potassium 4.0 Chloride 109 H Carbon Dioxide 25 BUN 18 Creatinine 0.77 Estimated GFR > 60.0 BUN/Creatinine Ratio 23.4 H Glucose 106 H Calcium 7.9 L Magnesium Procalcitonin Assessment & Plan Assessment & Plan narrative: 59-year-old male admitted for colitis and associated GI bleed. Over the past 24 hours has had several further bloody bowel movements. In general the majority of GI bleed associated with colitis resolve without endoscopic intervention. However if he continues to bleed and this does not resolve then he may require therapeutic colonoscopy, however endoscopy in the setting of colitis is associated with increased risk of perforation. -NPO IV fluids, transfuse as needed -Antibiotics for colitis -bowel prep today for possible colonoscopy tomorrow
[2020-05-12] MEDS: PEG3350/SOD SULF,BICARB,CL/KCL 4,000 ML SOLUTION 4000 ML PO (12:55)
--- NOTE | 2020-05-12 13:33 | PM.PN.1 ---
Subjective Subjective Date Patient Seen: 05/12/20 Interval history: Ermias Wells is a 50-year-old male with a past medical history significant for hyperlipidemia, diabetes mellitus type 2, non-insulin using and diet-controlled, diverticulitis status post partial colectomy who presented to the ED with acute onset of bloody diarrhea, 6 episodes prior to arrival and another 5 while in the ED described as large and maroon in color.? The patient is resting in bed comfortably. He continued to have several bloody bowel movements overnight, approximately 1000 mL total and another small bloody bowel movement 50 mL this morning. He is hemodynamically stable. He denies headache, lightheadedness or dizziness, presyncope or syncopal episodes, shortness of breath, chest pain, abdominal pain, nausea, vomiting, fever, chills, dysuria, diarrhea or constipation. He is voiding and eliminating without difficulty. He is up ambulating without assistance. Exam Vital Signs (past 8 hours): - 05/12/20 08:00 05/12/20 08:24 05/12/20 12:38 Temperature 97.4 F L 97.9 F Pulse Rate 84 80 Pulse Rate [Orthostatic Lying] 106 H Pulse Rate [Orthostatic Sitting] 106 H Pulse Rate [Orthostatic Standing] 111 H Respiratory Rate 18 16 Blood Pressure 92/55 L 105/68 Blood Pressure [Orthostatic Lying] 92/55 L Blood Pressure [Orthostatic Sitting] 123/64 Blood Pressure [Orthostatic Standing] 93/50 L Pulse Oximetry 97 96 Oxygen Delivery Method Room Air Oxygen Flow Rate 0 Narrative Exam Narrative: General: Older male sitting in bed and in no acute distress, well-developed, well-nourished, appropriately interactive. HEENT: Normocephalic, atraumatic. External ears without defect. Pupils equal, round, and reactive to light. Anicteric sclerae, moist conjunctivae, and no lid lag. Oropharynx free of erythema and cobble stoning with moist mucosa. Neck: Supple with full range of motion. No lymphadenopathy or thyromegaly. Cardiovascular: Regular rate and rhythm without murmurs, rubs, or gallops appreciated. Pulmonary: Clear to auscultation bilaterally without crackles, wheezes, or rhonchi. Normal respiratory effort with no use of accessory muscles. Abdomen: Soft, bowel sounds present, nontender, nondistended. No hepatosplenomegaly or masses appreciated. Extremities: No clubbing, cyanosis, or edema. Skin: Normal temperature, turgor, and texture; no rash, ulcers, or subcutaneous nodules appreciated. Neurological: Cranial nerves grossly intact. Psychiatric: Normal mood and affect. Alert and oriented to person, place, and time. Objective Labs Result Diagrams: 05/12/20 12:08 05/12/20 05:45 Labs: Laboratory Results - last 24 hr 05/11/20 05/12/20 05/12/20 23:53 05:45 05:45 WBC RBC Hgb 11.9 L Hct 34.6 L MCV MCH MCHC RDW Plt Count Neut % (Auto) Lymph % (Auto) [place] % (Auto) Eos % (Auto) Baso % (Auto) Neut # (Auto) Lymph # (Auto) [place] # (Auto) Eos # (Auto) Baso # (Auto) Sodium Potassium Chloride Carbon Dioxide BUN Creatinine Estimated GFR BUN/Creatinine Ratio Glucose Calcium Magnesium 1.8 Procalcitonin < 0.05 05/12/20 05/12/20 05/12/20 05:45 05:45 12:08 WBC 7.7 RBC 2.89 L Hgb 9.3 L 9.1 L Hct 26.9 L 25.9 L MCV 93.2 MCH 32.3 MCHC 34.6 RDW 13.3 Plt Count 225 Neut % (Auto) 64.8 Lymph % (Auto) 26.0 [place] % (Auto) 7.6 Eos % (Auto) 1.0 L Baso % (Auto) 0.6 Neut # (Auto) 5000 Lymph # (Auto) 2000 [place] # (Auto) 600 Eos # (Auto) 100 Baso # (Auto) 0 Sodium 135 L Potassium 4.0 Chloride 109 H Carbon Dioxide 25 BUN 18 Creatinine 0.77 Estimated GFR > 60.0 BUN/Creatinine Ratio 23.4 H Glucose 106 H Calcium 7.9 L Magnesium Procalcitonin Assessment & Plan Assessment & Plan narrative: Ermias Wells is a 50-year-old male with a past medical history significant for hyperlipidemia, diabetes mellitus type 2, non-insulin using and diet-controlled, diverticulitis status post partial colectomy who presented to the ED with acute onset of bloody diarrhea, 6 episodes prior to arrival and another 5 while in the ED described as large and maroon in color.? 1. Acute colitis with lower GI bleed, present on admission. Active. -Patient presented with 11 bloody maroon BMs. He denies abdominal cramping or nausea.? Patient month 1 episode of transient lightheadedness and diaphoresis while passing large bloody stool, he has been afebrile with no prodromal or associated symptoms. -CT abdomen and pelvis with contrast demonstrated circumferential wall thickening involving a portion of the ascending colon suggestive of colitis with no abscess or free air.? Notation was made of postsurgical changes involving the distal colon with colonic diverticula without evidence of diverticulitis and normal appendix. -Initial hemoglobin 15.0. Hemoglobin trended down with IV fluids and GI bleeding due to colitis now?9.3. Continue to monitor H&H 1-2 times daily or more frequently if actively bleeding. -Held?aspirin 81 mg daily due to bleeding. -Continue levofloxacin 500 mg IV daily and flagyl 500 mg IV every 8 hours. -Consulted general surgery, Dr. Cruz, who recommended conservative treatment for colitis with IV antibiotics and advance diet as tolerated. If patient bleeding?subsides and tolerates a regular diet may be discharged on PO antibiotics. However, since the patient has had persistent bleeding plan for colonoscopy and starting bowel prep per Dr. Willis. Started bowel prep and continue clear liquid diet until midnight then NPO. Discontinued IV fluids as patient appears adequately hydrated. May need to restart IV fluids with dextrose source once NPO as patient's colonoscopy may not be until later tomorrow afternoon. 2. Diabetes mellitus type 2, diet controlled and non-insulin?using, chronic, present on admission. Stable. -Hemoglobin A1C 5.9% indicative of excellent glycemic control?in range of prediabetes.? -Patient previously was on metformin 500 mg twice daily which was discontinued following significant weight loss and diet control. -Continue [facility] blood glucose checks and low dose correctional scale insulin. -Continue clear liquid diet and will resume heart healthy/carbohydrate consistent diet once colonoscopy completed and able to take in PO intake. 3. Hypertension, chronic, present on admission. Stable. -Held lisinopril 20 mg daily and hydrochlorothiazide 25 mg daily due to risk of dehydration and hypotension with GI bleeding. 4. Hyperlipidemia, chronic, present on admission. Stable. -Continue home simvastatin 20 mg daily. Held aspirin 81 mg daily due to bleeding. VTE prophylaxis:? Bilateral SCDs, chemical prophylaxis contraindicated Code status:? Full code, patient designates his very to be his POA and surrogate decision maker Disposition: Patient will likely discharge home in 1-2 days pending colonoscopy and stabilization of GI bleeding and blood counts.
--- NOTE | 2020-05-12 14:21 | PC.NURSE ---
Addendum entered by Elda Rodriguez R.N. 05/12/20 14:52: Just up to bathroom, had 200 ml red liquid (watery-consistency) stool. Denied dizziness/lightheadedness on his feet. Back in bed now, continues to work on drinking bowel prep. Denies needs, calls appropriately. Light and belongings within reach. Addendum entered by Elda Rodriguez R.N. 05/12/20 14:37: Denied pain or discomfort. BT+ all quadrants. Abdomen soft, non-tender. Lungs CTA, HRR. Able to make needs known and calls appropriately. BSC next to bed for convenience/safety. Original Note: Shift summary: Alert and oriented X3. Had one dark red pudding-like stool this morning (50 ml), none so far at this point. Vitals stable. H/H re-check at noon 9.1/25.9. Started GoLytely bowel prep at 1300 for possible colonoscopy tomorrow, clear liquids until midnight. IV saline locked.
--- NOTE | 2020-05-12 15:25 | DIET.PN ---
Dietary Progress Note Assessment: Mr. Wells is a 59-year-old male with a past medical history significant for diverticulosis status post partial colectomy (2006), diabetes type 2 diet controlled, hypertension and hyperlipidemia who presented to the ER with bloody stools. The patient states that he was in his usual state health with no complaints of pain or problems until after dinner yesterday evening he began having bloody stools. 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 Patient states he had 6 bloody stools on board ship and was transferred to the ER for further evaluation. He reports significant changes in glucose control since changing his eating patterns. He has lost almost 30 lb and is off of his diabetes medication. HT: 175.26cm WT: 94.8kg BMI: 30.9 Labs: A1c: 5.9 MNA: 11 Jacky: 22 Nutrition Diagnosis: Altered GI function r/t decreased functional length of GI tract aeb conditions associated with diagnosis (diverticulitis, bowel resection). Interventions: 1. Discussed GI/SBS nutrition therapy. Recommended avoiding/limiting spicy foods, high fat foods, caffeine, alcohol and increasing water consumption. 2. Discussed importance of exercise in gut and overall health. Diet Order: NPO (colonoscopy prep) EER: [id number] tyler (~20-23 tyler/kg) weight loss ; 95-115g pro (1-1.2) Monitoring/Evaluations:weight, PO's, labs.
[2020-05-12 19:35] LABS: Hematocrit 24.6 % (41-53); Hemoglobin 8.6 g/dL (13.5-17.5)
--- NOTE | 2020-05-12 19:48 | PM.EVENT ---
Event Note Date Patient Seen: 05/12/20 Event Note: The patient sustained a ground level fall due to vasovagal syncope after having a BM and returning to bed. His systolic blood pressure was found to be 88 mmHg. The patient did not hit his head. He fell forward and sustained a mild abrasion to the bridge of his nose as he slid into the corner of the room per nursing staff. He denies headache or vision changes. Stat H&H performed and will plan to transfuse if hemoglobin significantly reduced and near 8.0 or he continues to be symptomatic. Continue IV fluids with normal saline at 100 mL/hr and will watch blood glucose every 6 hours once NPO and at glucose source of necessary. If patient continues to persistently bleed plan to contact general surgery this evening for emergency colonoscopy.
--- NOTE | 2020-05-12 21:45 | PC.NURSE ---
Event Note- Patient started Golytely prep today at 1300. Patient now making frequent trips to the bathroom. At 1830 I went to patients room to start the IV antibiotic. Patient stated i gotta go to the bathroom first. Asked patient if he was experiencing any dizziness, lightheadedness, chest pain, N/V, or JIM. Patient denied having any issues at this point. Patient walked himself to the bathroom with steady gait noted. I was standing at the doorway of the room preparing IV antibiotic. I then saw patient come out of the bathroom. Patient able to take a few steps before falling to the floor and sliding towards the wall. I yelled for my charge Nurse Faye and my GRAIN ORIGINATION SPECIALIST Criselda. I ran over to patient who was lying face down on the floor with eyes closed. Patients eyes opened within approx 10seconds. Patient able to answered questions appropriately form that moment. Helped patient sit up, rested for a second leaning onto the recliner chair. Gait belt applied and 3 staff helped patient up onto recliner chair. Continued to ask patient questions which he answer all correctly. Laceration noted to bridge of nose and one above each eyebrow. Cleaned up wounds and left ENROLLMENT COUNSELOR. Vital signs taken with BP at 88/59 with pulse at 158. Patient reported becoming dizzy, lightheaded, and sweaty while sitting on toliet. Patient states he thought he could get back to bed on his own. Aided patient back to bed at that time, MD notified, and transfer to ICU. Patient did complain of knees starting to hurt. A bruise appeared to be forming to left knee but no bruises were found when knees were rechecked approx 45 minutes later and patient reported no pain at that time.
[2020-05-13] VITALS (17 sets, daily range): BP systolic 106–139; BP diastolic 60–87; PULSE 71–124; RESP 14–27; TEMP 36.7–37.4; O2SAT 94–99; BMI 30.9
[2020-05-13 01:06] LABS: Hematocrit 25.4 % (41-53); Hemoglobin 8.9 g/dL (13.5-17.5)
[2020-05-13] MEDS: metroNIDAZOLE 500 MG/100 ML PIGGYBACK 100 MG IV ×2 (03:07→12:08)
--- NOTE | 2020-05-13 06:31 | PC.NURSE ---
Poultry Culler Note-Patient has been fatigued, oriented x4. Tolerated 1 unit PC finished at midnight, NPO after MN. Incontinent small liquid bloody stools x3. SR, VSS, HR did increase to 120 while standing during orthostatic VS, denies dizziness or palpitations.
[2020-05-13 06:48] LABS: Add Manual Diff / Slide Review NO; Basophils Absolute Auto 0 /uL (0-100); Basophils Percent Auto 0.6 % (0-2); Eosinophils Absolute Auto 100 /uL (0-450); Eosinophils Percent Auto 0.9 % (2-4); Hematocrit 23.9 % (41-53); Hemoglobin 8.4 g/dL (13.5-17.5); Lymphocytes Absolute Auto 1700 /uL (1100-4500); Lymphocytes Percent Auto 23.6 % (25-40); Mean Corpuscular Hemoglobin 32.3 PG (26-34); Mean Corpuscular Volume 92.3 fL (80-100); Monocytes Absolute Auto 700 /uL (0-900); Monocytes Percent Auto 9.3 % (3-14); Neutrophils Absolute Auto 4600 /uL (1500-7000); Neutrophils Percent Auto 65.6 % (50-75); Platelet Count 190 X10^3/uL (150-400); Red Blood Cell Count 2.59 X10^6/uL (4.5-5.9); Red Cell Distribution Width 13.3 % (11.6-14.8); White Blood Cell Count 7.1 X10^3/uL (4.5-11.0)
[2020-05-13 07:00] LABS: BUN Creatinine Ratio 21.3 (6-22); Blood Urea Nitrogen 17 mg/dL (9-20); Calcium 7.7 mg/dL (8.4-10.2); Carbon Dioxide 25 mmol/L (22-32); Chloride 107 mmol/L (98-107); Estimated Glomerular Filt Rate > 60.0 mL/min (>60); Glucose 99 mg/dL (70-100); HEMOLYSIS < 15 (0-50); Magnesium 1.9 mg/dL (1.6-2.3); Potassium 3.8 mmol/L (3.4-5.1); Sodium 135 mmol/L (137-145)
--- NOTE | 2020-05-13 09:43 | P.PN_ITS ---
Subjective Subjective Date Patient Seen: 05/13/20 Interval history: Ermias Wells is a 50-year-old male with a past medical history significant for hyperlipidemia, diabetes mellitus type 2, non-insulin using and diet- controlled, diverticulitis status post partial colectomy who presented to the ED with acute onset of bloody diarrhea, 6 episodes prior to arrival and another 5 while in the ED described as large and maroon in color. The patient is resting in bed comfortably. He has completed the bowel prep. He continued to have bloody BMs with his bowel prep and hemoglobin trending down, therefore, receiving 2nd unit of PRBC. He reports he feels much better than yesterday in regard to his energy level. His last BM was brown without blood and likely GI bleed has resolved. He is hemodynamically stable. Plan for colonoscopy later this afternoon. He has no complaints and denies headache, lightheadedness or dizziness, presyncope or syncopal episodes, shortness of breath, chest pain, abdominal pain, nausea, vomiting, fever, chills, dysuria, diarrhea or constipation. He is voiding and eliminating without difficulty. He is up ambulating without assistance. Exam Vital Signs (past 8 hours): - 05/13/20 06:00 05/13/20 08:00 05/13/20 08:14 Temperature 98.1 F 98.6 F 98.1 F Pulse Rate 82 75 82 Respiratory Rate 23 17 19 Blood Pressure 120/71 116/69 116/69 Pulse Oximetry 96 95 05/13/20 08:29 Temperature 98.3 F Pulse Rate 81 Respiratory Rate 20 Blood Pressure 121/72 Pulse Oximetry Oxygen Delivery Method Room Air Oxygen Flow Rate 0 Narrative Exam Narrative: General: Older male sitting in bed and in no acute distress, well-developed, well-nourished, appropriately interactive. HEENT: Normocephalic, atraumatic. External ears without defect. Pupils equal, round, and reactive to light. Anicteric sclerae, moist conjunctivae, and no lid lag. Oropharynx free of erythema and cobble stoning with moist mucosa. Small abrasion across bridge of nose. Neck: Supple with full range of motion. No lymphadenopathy or thyromegaly. Cardiovascular: Regular rate and rhythm without murmurs, rubs, or gallops appreciated. Pulmonary: Clear to auscultation bilaterally without crackles, wheezes, or rhonchi. Normal respiratory effort with no use of accessory muscles. Abdomen: Soft, bowel sounds present, nontender, nondistended. No hepatosplenomegaly or masses appreciated. Extremities: No clubbing, cyanosis, or edema. Skin: Normal temperature, turgor, and texture; no rash, ulcers, or subcutaneous nodules appreciated. Neurological: Cranial nerves grossly intact. Psychiatric: Normal mood and affect. Alert and oriented to person, place, and time. Objective Labs Result Diagrams: 05/13/20 11:37 05/13/20 06:30 Labs: Laboratory Results - last 24 hr 05/10/20 05/12/20 05/12/20 22:37 12:08 19:00 WBC RBC Hgb 9.1 L Hct 25.9 L MCV MCH MCHC RDW Plt Count Neut % (Auto) Lymph % (Auto) [place] % (Auto) Eos % (Auto) Baso % (Auto) Neut # (Auto) Lymph # (Auto) [place] # (Auto) Eos # (Auto) Baso # (Auto) Sodium Potassium Chloride Carbon Dioxide BUN Creatinine Estimated GFR BUN/Creatinine Ratio Glucose Calcium Magnesium Nasal Screen MRSA (PCR) Negative for mrsa Blood Type O Positive Antibody Screen Negative Crossmatch See Detail 05/12/20 05/13/20 05/13/20 19:20 00:55 06:30 WBC 7.1 RBC 2.59 L Hgb 8.6 L 8.9 L 8.4 L Hct 24.6 L 25.4 L 23.9 L MCV 92.3 MCH 32.3 MCHC 35.0 RDW 13.3 Plt Count 190 Neut % (Auto) 65.6 Lymph % (Auto) 23.6 L [place] % (Auto) 9.3 Eos % (Auto) 0.9 L Baso % (Auto) 0.6 Neut # (Auto) 4600 Lymph # (Auto) 1700 [place] # (Auto) 700 Eos # (Auto) 100 Baso # (Auto) 0 Sodium Potassium Chloride Carbon Dioxide BUN Creatinine Estimated GFR BUN/Creatinine Ratio Glucose Calcium Magnesium Nasal Screen MRSA (PCR) Blood Type Antibody Screen Crossmatch 05/13/20 06:30 WBC RBC Hgb Hct MCV MCH MCHC RDW Plt Count Neut % (Auto) Lymph % (Auto) [place] % (Auto) Eos % (Auto) Baso % (Auto) Neut # (Auto) Lymph # (Auto) [place] # (Auto) Eos # (Auto) Baso # (Auto) Sodium 135 L Potassium 3.8 Chloride 107 Carbon Dioxide 25 BUN 17 Creatinine 0.80 Estimated GFR > 60.0 BUN/Creatinine Ratio 21.3 Glucose 99 Calcium 7.7 L Magnesium 1.9 Nasal Screen MRSA (PCR) Blood Type Antibody Screen Crossmatch Assessment & Plan Assessment & Plan narrative: Ermias Wells is a 50-year-old male with a past medical history significant for hyperlipidemia, diabetes mellitus type 2, non-insulin using and diet- controlled, diverticulitis status post partial colectomy who presented to the ED with acute onset of bloody diarrhea, 6 episodes prior to arrival and another 5 while in the ED described as large and maroon in color. 1. Acute lower GI bleed with possible colitis, present on admission. Active. -Patient presented with 11 bloody maroon BMs. He denies abdominal cramping or nausea. Patient month 1 episode of transient lightheadedness and diaphoresis while passing large bloody stool, he has been afebrile with no prodromal or associated symptoms. -CT abdomen and pelvis with contrast demonstrated circumferential wall t hickening involving a portion of the ascending colon suggestive of colitis with no abscess or free air. Notation was made of postsurgical changes involving the distal colon with colonic diverticula without evidence of diverticulitis and normal appendix. -Initial hemoglobin 15.0. Hemoglobin trended down with IV fluids and GI bleeding due to colitis now 9.3. Continue to monitor H&H 1-2 times daily or more frequently if actively bleeding. -Held aspirin 81 mg daily due to bleeding. -Continue levofloxacin 500 mg IV daily and flagyl 500 mg IV every 8 hours. -Consulted general surgery, Dr. Cruz, who recommended conservative treatment for colitis with IV antibiotics and plans to perform colonoscopy today due to persistent bleeding. Patient is NPO since midnight. 2. Acute blood loss anemia, not present on admission. Active. -Patient had an episode of syncope due to acute blood loss and hypovolemia causing orthostasis. -Initial hemoglobin 15.0. Hemoglobin trended down with IV fluids and persistent GI bleeding due to colitis now 8.6. Received 1 unit PRBC with partial compensation to 8.9 likely due to continued GI bleeding. Hemoglobin continued to trend down now 8.4 this morning and he is receiving 2nd unit of PRBC. Transfusion goal < 7.0 or potentially higher if symptomatic and actively bleeding. -Continue to monitor H&H daily or more frequently if actively bleeding. 3. Diabetes mellitus type 2, diet controlled and non-insulin using, chronic, present on admission. Stable. -Hemoglobin A1C 5.9% indicative of excellent glycemic control in range of prediabetes. -Patient previously was on metformin 500 mg twice daily which was discontinued following significant weight loss and diet control. -Continue [facility] blood glucose checks and low dose correctional scale insulin. -Patient is NPO for planned colonoscopy as above and will resume heart healthy/carbohydrate consistent diet once colonoscopy completed and able to take in PO intake. 4. Hypertension, chronic, present on admission. Stable. -Held lisinopril 20 mg daily and hydrochlorothiazide 25 mg daily due to risk of dehydration and hypotension with GI bleeding. 5. Hyperlipidemia, chronic, present on admission. Stable. -Continue home simvastatin 20 mg daily. Held aspirin 81 mg daily due to bleeding. VTE prophylaxis: Bilateral SCDs, chemical prophylaxis contraindicated Code status: Full code, patient designates his very to be his POA and surrogate decision maker Disposition: Patient will likely discharge home in 1-2 days pending colonoscopy and stabilization of GI bleeding and blood counts.
[2020-05-13] MEDS: levoFLOXacin 500 MG/100 ML PIGGYBACK 100 MG IV (10:29)
[2020-05-13] MEDS: SODIUM CHLORIDE 0.9% FLUSH 10 ML IV ×2 (10:30→20:49)
--- NOTE | 2020-05-13 10:32 | PM.PREOP ---
Pre-operative Note COVID-19 COVID-19 status: Negative Result date/Date tested (Pos, Neg/Pending): 05/11/20 Interval Note History & Physical reviewed/Exam performed by Physician: Yes Changes to H&P: Yes H&P completed within 30 days and has changed as indicated here:: The patient continues to bleed, and he syncopized last night. He is getting transfused now and is on his 2nd unit of blood. Risks and benefits of screening colonoscopy and possible polypectomy were discussed with the patient including risk of bleeding, perforation, need for additional procedures, risks of anesthesia. The patient desires to proceed with the colonoscopy procedure. We have consulted the anesthesiologist to provide anesthesia care during this procedure due to the patient's severe symptomatic anemia resulting in syncope, ongoing need for transfusion, and medical instability, putting him at high risk for morbidity and mortality in the setting of any sedation or invasive procedure. ASA Class (for procedural sedation): IV (Due to ongoing blood loss, syncope, and active need for ongoing transfusion)
[2020-05-13 11:49] LABS: Hematocrit 26.1 % (41-53); Hemoglobin 9.2 g/dL (13.5-17.5)
[2020-05-13] MEDS: LACTATED RINGERS 1,000 ML 42 ML IV (14:06)
--- NOTE | 2020-05-13 15:08 | PC.NURSE ---
Day Shift Note Pt taken down for scope via wheelchair at 1340. Up to BSC today SBA, denied any dizziness, nausea, or shortness of breath. Small liquid brown stool x1 and intermittent smears. Denies pain. BP stable. NSR in the 80s, no change in HR noted with changes in position. Received 1 unit PRBCs this morning without issue.
--- NOTE | 2020-05-13 16:17 | PM.OP.ENDO ---
Operative Date/Time/Diagnoses Date of procedure: 05/13/20 Time of procedure: 16:17 Pre-op diagnosis: Lower GI bleed Post-op diagnosis: other (Pancolonic diverticulosis with no source of bleeding identified) Procedure & Clinicians Study performed: Diagnostic colonoscopy to distal ileum Same procedure as scheduled: Yes Indications: This is a 59-year-old man who was been in the hospital for several days with an intermittent lower GI bleed. Surgeon: Lindsay Cruz Procedure Notes SCOAP/Timeout: Performed Procedure in detail: The patient was brought to the room and placed in left lateral decubitus position with all bony prominences padded. A time-out was performed and then the patient was given procedural sedation and monitored throughout the procedure by Dr. Low. Once adequately sedated, the procedure was begun. A rectal exam was performed revealing no abnormalities. The colonoscope was then introduced to the rectum and advanced to the cecum in the usual fashion. The colon carbajal were coated with sticky heme-positive fluid. The entire colon had many diverticula, but none were actively bleeding. The cecum was identified by the appendiceal orifice, the mucosal tri-fold, and the ileocecal valve. I intubated the distal ileum and advanced the scope about 1 ft into the ileum. There was no heme-positive fluid in the ileum. The scope was then withdrawn into the colon, and retracted while rotating side to side and examining each mucosal fold. Many small, and medium sized diverticula were seen throughout the ascending, transverse, descending, and sigmoid colon. However, there was no active bleeding seen. Power wash was used to interrogate many diverticula, and no stigmata of bleeding was seen. At the conclusion of the procedure retroflexion was performed and small grade 1-2 internal hemorrhoids without stigmata of bleeding were seen. The scope was then withdrawn from the rectum the procedure was concluded. The patient tolerated the procedure well and was transferred to the PACU in stable condition. Scope withdrawal time: 17 Findings: diverticulosis (Throughout the entire colon) Specimen(s): none sent Complications: none Impression: Likely source of bleeding is from a diverticula, although no active bleeding was seen at this time. Post-procedure Recommendations: Other recommendation (Watch for current bleeding. If bleeding happens again, patient will need to be transferred for angiography and possible embolization of the bleeding vessel.) Plan for aftercare: Transfer back to the hospital floor, advanced diet as tolerated, and watch for recurrent bleeding. Follow up: as needed Disposition: PACU
[2020-05-13] MEDS: MORPHINE 2 MG/ML INJ IV (17:54)
[2020-05-14] VITALS (7 sets, daily range): BP systolic 114–145; BP diastolic 72–81; PULSE 75–111; RESP 17–21; TEMP 36.7–37.1; O2SAT 95–97
[2020-05-14 05:38] LABS: Add Manual Diff / Slide Review NO; Basophils Absolute Auto 0 /uL (0-100); Basophils Percent Auto 0.5 % (0-2); Eosinophils Absolute Auto 100 /uL (0-450); Eosinophils Percent Auto 1.5 % (2-4); Hematocrit 25.5 % (41-53); Hemoglobin 8.9 g/dL (13.5-17.5); Lymphocytes Absolute Auto 1800 /uL (1100-4500); Lymphocytes Percent Auto 23.7 % (25-40); Mean Corpuscular HGB Conc 35.1 % (30-36); Mean Corpuscular Hemoglobin 32.5 PG (26-34); Mean Corpuscular Volume 92.6 fL (80-100); Monocytes Absolute Auto 700 /uL (0-900); Neutrophils Absolute Auto 4800 /uL (1500-7000); Neutrophils Percent Auto 64.3 % (50-75); Platelet Count 191 X10^3/uL (150-400); Red Blood Cell Count 2.75 X10^6/uL (4.5-5.9); Red Cell Distribution Width 13.3 % (11.6-14.8); White Blood Cell Count 7.4 X10^3/uL (4.5-11.0)
[2020-05-14 05:52] LABS: Alanine Aminotransferase 14 IU/L (<50); Albumin 2.7 g/dL (3.5-5.0); Albumin Globulin Ratio 1.4 (1.0-2.8); Alkaline Phosphatase 39 U/L (38-126); Aspartate Aminotransferase 20 IU/L (17-59); BUN Creatinine Ratio 14.3 (6-22); Bilirubin Total 0.5 mg/dL (0.2-1.3); Blood Urea Nitrogen 12 mg/dL (9-20); Calcium 8.2 mg/dL (8.4-10.2); Carbon Dioxide 25 mmol/L (22-32); Chloride 108 mmol/L (98-107); Estimated Glomerular Filt Rate > 60.0 mL/min (>60); Glucose 96 mg/dL (70-100); HEMOLYSIS < 15 (0-50); Potassium 3.9 mmol/L (3.4-5.1); Sodium 136 mmol/L (137-145); Total Protein 4.7 g/dL (6.3-8.2)
--- NOTE | 2020-05-14 06:45 | PC.NURSE ---
[employer] Note-Patient slept. Ambulates steadily into BR with walker, denies dizziness or lightheadedness, SR/ST, HR up to 116 briefly, orthostatics VS done without significant changes, no stools, denies abdominal cramping or pain. AM H/H = 8.9/25.5.
[2020-05-14] MEDS: ACETAMINOPHEN 325 MG TABLET 650 MG PO (09:40)
[2020-05-14] MEDS: SODIUM CHLORIDE 0.9% FLUSH 10 ML IV (09:40)
--- NOTE | 2020-05-14 12:35 | P.DS_ITS ---
History of Present Illness History of Present Illness Date Patient Seen: 05/11/20 Chief complaint: blood in stool Narrative: Written by Bernardino CROW: Mr. Ermias Wells is a 59-year-old male with a past medical history significant for diverticulosis status post partial colectomy (2006), diabetes type 2 diet controlled, hypertension and hyperlipidemia who presents to the ER with bloody stools. The patient states that he was in his usual state health w ith no complaints of pain or problems until after dinner this evening he began having bloody stools. 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 Patient states he has 6 bloody stools on board ship and contact the captain and was transferred to the ER for further evaluation. While in the ER the patient had 5 more bloody stools described as large in volume maroon in color. Patient reports no prodrome symptoms but while in the ER experience an episode of diaphoresis and lightheadedness while passing of bloody stool. The patient has had no recent complaints of illness, fevers or chills and no known COVID-19 exposures. He denies complaints of chest pain or pa lpitations and has had no shortness of breath cough or wheezing. He denies epigastric pain or abdominal cramping. He has had no changes in bowel movements until this evening and has a remote history of a partial colectomy in 2006 for diverticulitis. He describes no difficulty urinating and no urinary symptoms. He reports no neck back or joint problems and is independent in all ADLs. Upon arrival to the ER the patient has temperature of 98.5?, heart rate 101, blood pressure 104/54, respiratory rate of 20 and oxygen saturation of 99% on room air. Abdominal CT is obtained which finds circumferential wall thickening involving a portion of the ascending colon suggestive of colitis, no abscess or free air. Notation made of postsurgical changes in the distal colon and colonic diverticula without evidence of acute diverticulitis, no acute appendicitis. On laboratory analysis patient will count to 10.8 with elevated neutrophil count at 87.9%. His hemoglobin is 15.0 and hematocrit is 43.9 with platelets of 305. He has a PT of 11.5, INR 1.0 and a PTT of 24. His electrolytes are within normal limits and has a BUN of 33 and INR of 1.24. His nonfasting glucose is 197. His liver functions are all within normal limits. In the ER the patient was typed and crossed and received 500 cc bolus, normal saline at 125 cc/hour. Dr. Cruz general surgery was contacted through the ER and agrees to consult. The patient is admitted to the medicine service for lower GI bleed. Discharge Providers Provider Date of admission: 05/11/20 00:58 Discharge Date: 05/14/20 Consults: 05/11/20 00:33 Consult to Dietitian, Adult Routine Comment: Reason For Exam: Lower GI bleed 05/11/20 00:37 Consult to Discharge Planning Routine Comment: Discharge provider: Adina Piña DO Summary Hospital Course Discharge Diagnosis: 1. Acute lower GI bleed, present on admission. Active. 2. Acute blood loss anemia, not present on admission. Active. 3. Diabetes mellitus type 2, diet controlled and non-insulin using, chronic, present on admission. Stable. 4. Hypertension, chronic, present on admission. Stable. 5. Hyperlipidemia, chronic, present on admission. Stable. Hospital Course: Ermias Wells is a 50-year-old male with a past medical history significant for hyperlipidemia, diabetes mellitus type 2, non-insulin using and diet- controlled, diverticulitis status post partial colectomy who presented to the ED with acute onset of bloody diarrhea, 6 episodes prior to arrival and another 5 while in the ED described as large and maroon in color. 1. Acute lower GI bleed, present on admission. Active. -Patient presented with for 5 maroon bloody BMs on ship to [place] sent to ED and continued to have 6 bloody BMs in ED. Patient has history of perforated diverticulitis with partial left side colectomy. -CT abdomen and pelvis with contrast demonstrated circumferential wall thickenin g involving a portion of the ascending colon suggestive of colitis with no abscess or free air. Notation was made of postsurgical changes involving the distal colon with colonic diverticula without evidence of diverticulitis and normal appendix. -Held aspirin 81 mg daily due to bleeding. -Discontinued levofloxacin 500 mg IV daily and flagyl 500 mg IV every 8 hours as patient had no signs of colitis on colonoscopy. Patient has been afebrile without leukocytosis and negative procalcitonin. -Initial hemoglobin 15.0. Hemoglobin trended down to 8.6 and patient had symptomatic anemia with syncopal episode, therefore, received 1 unit PRBC. The patient then underwent bowel prep and continued to have significant bleeding and received another 1 unit PRBC. Hemoglobin trended up to 9.6 and then slowly trended back down to 8.9. Dr. Estrada of general surgery performed colonoscopy on 05/13/2020 without source or stigmata of bleeding identified throughout remaining colon or terminal ileum. Patient began having recurrence of GI bleeding and general surgery recommended transfer for tagged red blood cell scan or CTA with IR guided embolization. Discussed case with Dr. Anders, hospitalist and Dr. Giraldo, GI at [facility] who accepted transfer for higher level of care. 2. Acute blood loss anemia, not present on admission. Active. -Patient had an episode of syncope due to acute blood loss and hypovolemia causing orthostasis. -Initial hemoglobin 15.0. Hemoglobin trended down to 8.6 with persistent GI bleeding and received 2 units unit PRBC with compensation 9.6. Hemoglobin trending back down now 8.9 with recurrent bleeding and stat H&H pending. Transfusion goal < 7.0 or potentially higher if symptomatic and actively bleeding. -Continued to monitor H&H daily and more frequently if actively bleeding. 3. Diabetes mellitus type 2, diet controlled and non-insulin using, chronic, present on admission. Stable. -Hemoglobin A1C 5.9% indicative of excellent glycemic control in range of prediabetes. -Patient previously was on metformin 500 mg twice daily which was discontinued following significant weight loss and diet control. -Continued [facility] blood glucose checks and low dose correctional scale insulin. -Continued clear liquid diet status post colonoscopy. 4. Hypertension, chronic, present on admission. Stable. -Held lisinopril 20 mg daily and hydrochlorothiazide 25 mg daily due to risk of dehydration and hypotension with GI bleeding. 5. Hyperlipidemia, chronic, present on admission. Stable. -Continued home simvastatin 20 mg daily. Held aspirin 81 mg daily due to blee cintia. Exam Vital Signs (past 8 hours): - 05/14/20 04:44 05/14/20 07:00 05/14/20 08:00 Temperature 98.5 F 98.1 F Pulse Rate 75 Pulse Rate [Orthostatic Lying] 75 Pulse Rate [Orthostatic Sitting] 76 Pulse Rate [Orthostatic Standing] 91 H Respiratory Rate 17 Blood Pressure 122/72 Blood Pressure [Orthostatic Lying] 122/72 Blood Pressure [Orthostatic Sitting] 116/80 Blood Pressure [Orthostatic Standing] 117/79 Pulse Oximetry 96 Oxygen Delivery Method Room Air Oxygen Flow Rate 0 Narrative Exam Narrative: General: Older male sitting in bed and in no acute distress, well-developed, well-nourished, appropriately interactive. HEENT: Normocephalic, atraumatic. External ears without defect. Pupils equal, round, and reactive to light. Anicteric sclerae, moist conjunctivae, and no lid lag. Oropharynx free of erythema and cobble stoning with moist mucosa. Small abrasion across bridge of nose healing. Neck: Supple with full range of motion. No lymphadenopathy or thyromegaly. Cardiovascular: Regular rate and rhythm without murmurs, rubs, or gallops appreciated. Pulmonary: Clear to auscultation bilaterally without crackles, wheezes, or rhonchi. Normal respiratory effort with no use of accessory muscles. Abdomen: Soft, bowel sounds present, nontender, nondistended. No hepatosplenomegaly or masses appreciated. Extremities: No clubbing, cyanosis, or edema. Skin: Normal temperature, turgor, and texture; no rash, ulcers, or subcutaneous nodules appreciated. Neurological: Cranial nerves grossly intact. Psychiatric: Normal mood and affect. Alert and oriented to person, place, and time. Objective Labs Result Diagrams: 05/14/20 04:45 05/14/20 04:45 Labs: Laboratory Results - last 24 hr 05/10/20 05/14/20 05/14/20 22:37 04:45 04:45 WBC 7.4 RBC 2.75 L Hgb 8.9 L Hct 25.5 L MCV 92.6 MCH 32.5 MCHC 35.1 RDW 13.3 Plt Count 191 Neut % (Auto) 64.3 Lymph % (Auto) 23.7 L [place] % (Auto) 10.0 Eos % (Auto) 1.5 L Baso % (Auto) 0.5 Neut # (Auto) 4800 Lymph # (Auto) 1800 [place] # (Auto) 700 Eos # (Auto) 100 Baso # (Auto) 0 Sodium 136 L Potassium 3.9 Chloride 108 H Carbon Dioxide 25 BUN 12 Creatinine 0.84 Estimated GFR > 60.0 BUN/Creatinine Ratio 14.3 Glucose 96 Calcium 8.2 L Magnesium 2.0 Total Bilirubin 0.5 AST 20 ALT 14 Alkaline Phosphatase 39 Total Protein 4.7 L Albumin 2.7 L Globulin 2.0 Albumin/Globulin Ratio 1.4 Crossmatch See Detail Discharge Plan Discharge Plan Disposition: [facility]
--- NOTE | 2020-05-14 13:19 | CM.DPNOTE ---
DC Note It was anticipated that patient would DC home today if his bleeding had stopped. Just heard from Dr Piña, patient's bleeding continues this afternoon and now efforts in place for transfer to higher level of care. JW
[2020-05-14 13:53] LABS: Hematocrit 25.4 % (41-53)
== END 2020-05-14 14:10 | disposition short-term general hospital (02) | DRG 249 ==
LOC: ED 23:36 → AC 05-11 10:51 → ICU 05-13 08:23 → AC 05-13 14:36
PROVIDERS: Internal Medicine; Surgery; Admitting Provider Nurse Practitioner Adult Health; Emergency Provider Emergency Medicine; Referring Provider Emergency Medicine; Visit Provider Nurse Practitioner Adult Health
PROC: 0DJD8ZZ Inspection of Lower Intestinal Tract, Via Natural or Artificial Opening Endoscopic (ICD-10-PCS; CPT 45378; principal; 2020-05-13 15:15)
DX: K52.9 Noninfective gastroenteritis and colitis, unspecified (principal); R55 Syncope and collapse; D62 Acute posthemorrhagic anemia; K62.5 Hemorrhage of anus and rectum; K57.90 Diverticulosis of intestine, part unspecified, without perforation or abscess without bleeding; E11.9 Type 2 diabetes mellitus without complications; I10 Essential (primary) hypertension; E78.5 Hyperlipidemia, unspecified; S00.31XA Abrasion of nose, initial encounter; Z79.84 Long term (current) use of oral hypoglycemic drugs; Y99.0 Civilian activity done for income or pay; W18.30XA Fall on same level, unspecified, initial encounter; Y92.239 Unspecified place in hospital as the place of occurrence of the external cause
CPT/HCPCS: 36415; 36430; 74177; 80048; 80053; 82962; 83036; 83735; 84145; 85014; 85018; 85025; 85610; 85730; 86850; 86900; 86901; 87635; 87797; 99284; P9016; C9113; J1956; J2270; J2704; J3010; Q9967